=== PATIENT | male | born 1970 | race Caucasian/White ===

== ENCOUNTER 2018-02-09 18:57 | Emergency (ER) | payer BC | END 2018-02-09 21:38 | disposition home or self-care (01) | LOC: TRA 18:57 → EME 18:57 | PROC: 0JQ00ZZ Repair Scalp Subcutaneous Tissue and Fascia, Open Approach (ICD-10-PCS; principal; 2018-02-09) | DX: S01.01XA Laceration without foreign body of scalp, initial encounter (principal); F10.129 Alcohol abuse with intoxication, unspecified; V86.99XA Unspecified occupant of other special all-terrain or other off-road motor vehicle injured in nontraffic accident, initial encounter; Y93.53 Activity, golf; Y92.39 Other specified sports and athletic area as the place of occurrence of the external cause; R40.2411 Glasgow coma scale score 13-15, in the field [EMT or ambulance] | CPT/HCPCS: 70450; 72125; 99281; 99285 ==